=== PATIENT | male | born 1935 | race Caucasian/White ===

== ENCOUNTER 2019-11-02 20:41 | Observation (INO) ==
[2019-11-02] MEDS ORDERED: ONDANSETRON 4 MG/2 ML VIAL IV PRN (21:23)
[2019-11-02] MEDS ORDERED: MORPHINE 4 MG/1 ML VIAL IV PRN (21:23)
[2019-11-02] MEDS: DEXTROSE 5% NACL 0.45% 1,000 ML IV SCH (22:22)
[2019-11-03] MEDS: PIPERACILLIN/TAZOBACTAM 3,375 MG in SODIUM CHLORIDE 0.9% 100 ML IV SCH ×4 (02:17→17:52)
[2019-11-03] MEDS: DEXTROSE 5% NACL 0.45% 1,000 ML IV SCH ×3 (05:30→17:53)
[2019-11-03 05:37] LABS: Basophils % 0.2 % (0.0-0.8); Eosinophils % 0.2 % (0.00-10.9); Hematocrit 39.4 VOL% (42.0-52.0); Hemoglobin 12.6 GM/DL (14.0-18.0); Immature Granulocytes % 0.4 %; Immature Granulocytes Absolute 0.05 #; Lymphocytes # 1.4 10*3/uL (1.4-4.0); Lymphocytes % 11.6 % (21.2-54.2); Mean Corpuscular Volume 89.3 FL (87-102); Mean Platelet Volume 10.2 FL (9.6-12.0); Monocytes % 4.3 % (1.7-12.7); Neutrophils % 83.3 % (38.7-73.9); Platelet Count 190 T/CUMM (130-400); Red Blood Count 4.41 MC/CUMM (3.8-5.5); Red Cell Distribution Width 14.7 % (9.3-17.3); White Blood Count 12.4 T/CUMM (4-12)
[2019-11-03 06:08] LABS: Calcium 8.2 MG/DL (8.5-10.1); Osmolality,Calculated 281.5 MOS/KG (273-304)
[2019-11-03] MEDS ORDERED: cefOXitin 2,000 MG in SYRINGE 1 EACH IV ONE (06:49)
[2019-11-03] MEDS: PANTOPRAZOLE 40 MG VIAL IV SCH (08:16)
[2019-11-03] MEDS ORDERED: TISSUE ADHESIVE 1 EACH APPLICATOR TOP ONE (10:48)
[2019-11-03] MEDS ORDERED: ONDANSETRON 4 MG/2 ML VIAL IV PRN (11:02)
[2019-11-03] MEDS ORDERED: HYDROmorphone 2 MG/1 ML VIAL IV PRN (11:02)
[2019-11-03] MEDS ORDERED: propofoL 200 MG/20 ML VIAL IV ONE (11:05)
[2019-11-03] MEDS ORDERED: ETOMIDATE 40 MG/20 ML VIAL IV ONE (11:05)
[2019-11-03] MEDS ORDERED: LIDOCAINE 2% 5 ML VIAL ONE (11:05)
[2019-11-03] MEDS ORDERED: SEVOFLURANE 1 UNIT/15 MINUTE INH ONE (11:05)
[2019-11-03] MEDS ORDERED: fentaNYL 100 MCG/2 ML VIAL ONE (11:05)
[2019-11-03] MEDS ORDERED: LACTATED RINGERS 1,000 ML IV ONE (11:06)
[2019-11-03] MEDS ORDERED: PHENYLEPHRINE 1 MG/10 ML SYRINGE IV ONE (11:06)
[2019-11-03] MEDS ORDERED: ROCURONIUM 100 MG/10 ML VIAL IV ONE (11:06)
[2019-11-03] MEDS ORDERED: NEOSTIGMINE 10 MG/10 ML VIAL ONE (11:06)
[2019-11-03] MEDS ORDERED: GLYCOPYRROLATE 0.4 MG/2 ML VIAL ONE (11:06)
[2019-11-04] MEDS: PIPERACILLIN/TAZOBACTAM 3,375 MG in SODIUM CHLORIDE 0.9% 100 ML IV SCH ×2 (01:33→10:19)
[2019-11-04 07:15] LABS: Calcium 8.7 MG/DL (8.5-10.1)
[2019-11-04] MEDS: DEXTROSE 5% NACL 0.45% 1,000 ML IV SCH ×2 (07:40→11:54)
[2019-11-04 08:17] VITALS: BP 98/57
[2019-11-04] MEDS ORDERED: TAMSULOSIN 0.4 MG CAPSULE PO SCH (09:30)
[2019-11-04] MEDS: PANTOPRAZOLE 40 MG VIAL IV SCH (10:15)
[2019-11-05] MEDS ORDERED: hydroCHLOROthiazide 12.5 MG CAPSULE PO SCH (09:00)
[2019-11-05] MEDS ORDERED: lisinopriL 5 MG TABLET PO SCH (09:00)
== END 2019-11-04 12:10 | disposition home or self-care (01) ==
LOC: N.ED 20:41 → N.EDINP 20:41 → N.3E 21:53
PROVIDERS: ADMIT Surgery; ATTEND Surgery

== ENCOUNTER 2019-11-08 10:43 | Observation (INO) ==
[2019-11-08] MEDS ORDERED: ALBUTEROL/IPRATROPIUM 3 ML NEB RESP TX PRN (13:09)
[2019-11-08] MEDS ORDERED: ONDANSETRON 4 MG/2 ML VIAL IV PRN (13:09)
[2019-11-08] MEDS ORDERED: MORPHINE 4 MG/1 ML VIAL IV PRN (13:09)
[2019-11-08] MEDS ORDERED: ACETAMINOPHEN 325 MG TABLET PO PRN (13:09)
[2019-11-08] MEDS ORDERED: BISACODYL 5 MG TABLET PO PRN (13:09)
[2019-11-08] MEDS: CIPROFLOXACIN 500 MG TABLET PO SCH ×2 (14:30→21:11)
[2019-11-08] MEDS: TAMSULOSIN 0.4 MG CAPSULE PO SCH ×2 (14:30→21:11)
[2019-11-08] MEDS: PANTOPRAZOLE 40 MG TABLET PO SCH (14:30)
[2019-11-08 14:36] LABS: Basophils % 0.2 % (0.0-0.8); Eosinophils # 0.1 10*3/uL (0.0-0.87); Hematocrit 40.2 VOL% (42.0-52.0); Hemoglobin 12.7 GM/DL (14.0-18.0); Immature Granulocytes % 0.9 %; Immature Granulocytes Absolute 0.06 #; Lymphocytes # 1.3 10*3/uL (1.4-4.0); Lymphocytes % 19.6 % (21.2-54.2); Mean Corpuscular HGB Conc 31.6 GM/DL (32-36); Mean Corpuscular Volume 89.3 FL (87-102); Mean Platelet Volume 9.9 FL (9.6-12.0); Monocytes % 7.7 % (1.7-12.7); Neutrophils % 69.6 % (38.7-73.9); Platelet Count 241 T/CUMM (130-400); Red Cell Distribution Width 14.6 % (9.3-17.3); White Blood Count 6.6 T/CUMM (4-12)
[2019-11-08 15:00] LABS: Bilirubin,Total 0.5 MG/DL (0.2-1.0); Calcium 8.9 MG/DL (8.5-10.1); Osmolality,Calculated 271.8 MOS/KG (273-304); Total Protein 7.2 G/DL (6.4-8.3)
[2019-11-09 06:15] LABS: Basophils % 0.5 % (0.0-0.8); Eosinophils # 0.2 10*3/uL (0.0-0.87); Hematocrit 35.2 VOL% (42.0-52.0); Hemoglobin 11.6 GM/DL (14.0-18.0); Immature Granulocytes % 0.3 %; Immature Granulocytes Absolute 0.02 #; Lymphocytes # 1.5 10*3/uL (1.4-4.0); Lymphocytes % 25.9 % (21.2-54.2); Mean Corpuscular Volume 86.5 FL (87-102); Mean Platelet Volume 10.1 FL (9.6-12.0); Monocytes % 10.1 % (1.7-12.7); Neutrophils % 59.2 % (38.7-73.9); Platelet Count 218 T/CUMM (130-400); Red Blood Count 4.07 MC/CUMM (3.8-5.5); Red Cell Distribution Width 14.5 % (9.3-17.3); White Blood Count 5.8 T/CUMM (4-12)
[2019-11-09 06:36] LABS: Hypochromasia 1+; Platelet Estimate Adequate
[2019-11-09 06:50] LABS: Calcium 8.6 MG/DL (8.5-10.1); Osmolality,Calculated 278.3 MOS/KG (273-304)
[2019-11-09] MEDS ORDERED: LACTATED RINGERS 1,000 ML IV SCH (08:00)
[2019-11-09] MEDS: TAMSULOSIN 0.4 MG CAPSULE PO SCH (09:27)
[2019-11-09] MEDS: CIPROFLOXACIN 500 MG TABLET PO SCH (09:27)
[2019-11-09] MEDS: PANTOPRAZOLE 40 MG TABLET PO SCH (09:28)
[2019-11-09 13:49] VITALS: BP 103/62
== END 2019-11-09 14:03 | disposition home or self-care (01) ==
LOC: N.3E 11:05 → INTOOBSV 11:05
PROVIDERS: ADMIT Surgery; ATTEND Surgery